=== PATIENT | female | born 1970 | race Caucasian/White ===

== ENCOUNTER 2018-03-30 06:07 | Emergency (ER) | payer OTHER ==
[2018-03-30] MEDS ORDERED: OXYCODONE-ACETAMINOPHEN 5-325 MG TABLET PO ONE (06:32)
[2018-03-30] MEDS ORDERED: DIPH/PERTUSS(ACELL)/TETANUS VAC/PF 0.5 ML SYR (>=10YO) IM ONE (06:32)
[2018-03-30] MEDS ORDERED: ONDANSETRON 4 MG TAB.RAPDIS PO ONE (06:33)
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
[2018-03-30] MEDS ORDERED: ONDANSETRON ODT 4 MG TAB (6 TAB/ER DISP) PO PRN (07:51)
[2018-03-30 08:02] VITALS: BP 112/70
== END 2018-03-30 08:02 | disposition home or self-care (01) ==
LOC: ER 06:07
DX: S00.83XA Contusion of other part of head, initial encounter (principal); R51 Headache; M54.2 Cervicalgia; M54.5 Low back pain; V49.50XA Passenger injured in collision with unspecified motor vehicles in traffic accident, initial encounter; R11.0 Nausea; Z87.891 Personal history of nicotine dependence
CPT/HCPCS: 99284; 90471; 72110; 70450; 72125; 90715; S0119

== ENCOUNTER 2018-04-04 14:13 | Emergency (ER) | payer OTHER ==
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
[2018-04-04 18:41] VITALS: BP 119/67
== END 2018-04-04 18:37 | disposition home or self-care (01) ==
LOC: ER 14:13
DX: R51 Headache (principal); R42 Dizziness and giddiness; R11.0 Nausea; Z87.891 Personal history of nicotine dependence; F07.81 Postconcussional syndrome; V87.7XXA Person injured in collision between other specified motor vehicles (traffic), initial encounter
CPT/HCPCS: 99284